=== PATIENT | female | born 1975 | race Caucasian/White ===

== ENCOUNTER 2021-05-15 07:59 | Emergency (ER) | payer SELFPAY ==
--- NOTE | ~2021-05-15 | CT_ITS ---
EXAMINATION: CT brain wo con INDICATION: Confusion, visual disturbance, hypertension COMPARISON: None TECHNIQUE: Standard unenhanced head CT. The dose-length product (DLP) was 605.33 mGy-cm. The mA was a djusted according to patient size. Iterative reconstruction technique was employed. FINDINGS: There is no intracranial hemorrhage, acute infarction, or abnormal mass lesion. There is a small periventricular area of low attenuation in the left childers radiata which may reflect small prio r infarct. The ventricles are normal. There is no abnormal mass effect or midline shift. The stiles-whi te matter differentiation is normal. The basal cisterns are patent. The orbits are normal. The parana humble sinuses, mastoids and calvarium are normal. IMPRESSION: 1. No acute intracranial abnormality. Reviewed, dictated and finalized at location B.
[2021-05-15 08:13] VITALS: BP 190/113; PULSE 97; RESP 18; TEMP 36.6; O2SAT 99
--- NOTE | 2021-05-15 08:28 | ECG_ITS ---
Measurements Intervals [place] Rate: 79 P: 41 [place]: 119 QRS: 39 QRSD: 84 T: 43 QT: 380 QTc: 437 Interpretive Statements SINUS RHYTHM WITH SHORT [place] INTERVAL EARLY PRECORDIAL R/S TRANSITION BORDERLINE ECG Electronically Signed On 05-15-2021 9:08:16 CDT by Shon Steven D.O.
--- NOTE | 2021-05-15 08:38 | ED.EYEPROB ---
HPI - Eye Problem General Chief complaint: Eye Problems Stated complaint: see spots Time Seen by Provider: 05/15/21 08:15 Source: patient and RN notes reviewed Mode of arrival: ambulatory Limitations: no limitations History of Present Illness HPI Narrative: 2 days of blurred vision, slow mentation and elevated BP. no acute VARGAS or lateralizing sxs. chief complaint: other (blurred vision) Onset (ago): day(s) (2) Onset description: gradual Duration: constant Location: both eyes Eye Symptoms: blurry vision Place: home Severity: mild If Pain, Quality: other (pain-free) Associated symptoms: nausea/vomiting Related Data Allergies Allergy/AdvReac Type Severity Reaction Status Date / Time No Known Allergies Allergy Unknown Unverified 10/15/09 11:20 Review of Systems Review of Systems: All systems reviewed & are unremarkable except as noted in HPI and below Constitutional: Constitutional: Reports as per HPI and Reports no additional constitutional complaints Eyes: Eyes: Reports as per HPI and Reports no additional eye complaints ENT: Reports system reviewed and no additional complaints, except as documented and Reports as per HPI Cardiovascular: Cardiovascular: Reports as per HPI and Reports no additional cardiovascular complaints Respiratory: Respiratory: Reports as per HPI and Reports no additional respiratory complaints Gastrointestinal: Gastrointestinal: Reports as per HPI and Reports no additional gastrointestinal complaints Genitourinary: Genitourinary: Reports no additional female genitourinary complaints and Reports as per HPI Musculoskeletal: Musculoskeletal: Reports no additional musculoskeletal complaints and Reports as per HPI Integumentary/Breasts: Skin/Breast: Reports system reviewed and no additional complaints, except as docu and Reports as per HPI Neurologic: Reports system reviewed and no additional complaints, except as documented and Reports as per HPI Psychiatric: Psychiatric: Reports no additional psychiatric complaints and Reports as per HPI Endocrine: Endocrine: Reports no additional endocrine complaints and Reports as per HPI Hematologic/Lymphatic: Hematologic/Lymphatic: Reports no additional hematologic/lymphatic complaints and Reports as per HPI Allergic/Immunologic: Allergic/Immunologic: Reports no additional allergic/immunologic complaints and Reports as per HPI PMFSH Past Medical History Medical History (Updated 05/15/21 @ 10:39 by Rell Beckett MD) Hypertension Surgical History Surgical History (Updated 05/15/21 @ 08:50 by Rell Beckett MD) Gastric bypass status for obesity Exam Const: General: no acute distress and alert Nutritional Appearance: well nourished Orientation/consciousness: patient oriented x3 HENMT: Head: normal to inspection Ears: external ears normal and TM's normal bilaterally General nose exam: Normal external nose present and Normal nares present Face and sinus: normal facial exam Mouth: Yes lip normal and Yes moist mucous membranes Teeth and gingiva: dentition normal Eyes: Conjunctivae: conjunctivae normal Pupils: Equal, round and reactive pupils present EOM: EOMs intact bilaterally Neck: Neck: normal visual inspection and no lymphadenopathy Chest: Chest palpation & inspection: normal inspection of the chest Resp: Effort & Inspection: normal respiratory effort Auscultation: clear to auscultation bilaterally Cardio: Rate: regular rate Rhythm: regular rhythm GI: Auscultation: normal bowel sounds Other: non-tender abdomen : General: Yes no CVA tenderness Back/Spine/Pelvis: Back: no CVA tenderness Skin: General skin exam: normal color Rashes: no rashes Neuro: General: patient oriented x3, moves all extremities, no focal motor deficits and CN's II-XI intact bilaterally Cranial nerves: Yes Nystagmus not present Speech: normal speech Extrem: General: normal to inspection Psych: Appearance: well kempt Mental Status: me
[2021-05-15] MEDS: SODIUM CHLORIDE 0.9% IV 500 ML 999 ML IV CONT (08:47)
[2021-05-15] MEDS: cloNIDine HCL 0.2 MG TABLET PO (08:48)
[2021-05-15] MEDS: ASPIRIN 325 MG ENTERIC TABLET PO (09:06)
[2021-05-15 09:09] LABS: Basophils Absolute Auto 0.05 K/mm3 (0.00-0.10); Basophils Percent Auto 0.6 % (0.0-1.0); Eosinophils Absolute Auto 0.28 K/mm3 (0.02-0.50); Eosinophils Percent Auto 3.5 % (1.0-6.0); Hematocrit 38.9 % (35.0-49.0); Hemoglobin 12.5 g/dL (12.0-15.0); Immature Granulocyte Absolute 0.02 K/mm3 (0.00-0.00); Immature Granulocyte Percent A 0.2 % (0.0-0.0); Lymphocytes Absolute Auto 2.04 K/mm3 (1.10-4.50); Lymphocytes Percent Auto 25.3 % (18.0-42.0); Mean Corpuscular HGB Conc 32.1 g/dL (32.0-36.0); Mean Corpuscular Hemoglobin 26.5 pg (27.0-31.0); Mean Corpuscular Volume 82.6 fL (78.0-102.0); Monocytes Absolute Auto 0.66 K/mm3 (0.10-0.90); Monocytes Percent Auto 8.2 % (2.0-11.0); Neutrophils Percent Auto 62.2 % (50.0-70.0); Platelet Count Result 438 K/mm3 (150-420); Red Blood Count 4.71 M/mm3 (4.20-5.40); Red Cell Distribution Width 16.4 % (11.6-14.4); White Blood Count 8.1 K/mm3 (4.8-10.8)
[2021-05-15 09:10] LABS: Add Urine Microscopic? YES; Appearance Urine Clear (Clear); Bilirubin Urine Negative (Negative); Blood Urine 1+ (Negative); Color Urine Light Yellow (Yellow); Glucose Urine UA Negative (Negative); Ketones Urine Negative (Negative); Leukocyte Esterase Ur 1+ (Negative); Nitrate Urine Negative (Negative); Protein Urine Negative (Negative); Specific Grav Ur 1.015 (1.010-1.020)
[2021-05-15 09:16] LABS: Bacteria Urine 1+ /hpf; Squamous Epithelial Cell Urine Few /hpf (Few)
[2021-05-15 09:19] LABS: Amphetamine Screen Urine Negative (Negative); Barbiturate Screen Urine Negative (Negative); Benzodiazepines Screen Urine Negative (Negative); Cannabinoid Screen Urine Negative (Negative); Cocaine Screen Urine Negative (Negative); Methadone Screen Urine Negative (Negative); Opiate Screen Urine Negative (Negative); Phencyclidine Screen Urine Negative (Negative)
[2021-05-15 09:26] LABS: Alanine Aminotransferase 26 U/L (14-59); Albumin Level 3.9 g/dL (3.4-5.0); Alkaline Phosphatase 110 U/L (46-116); Anion Gap 14 mmol/L (8-16); Aspartate Amino Transferase 39 U/L (15-37); Bilirubin,Total 1.9 mg/dL (0.00-1.00); Blood Urea Nitrogen 10 mg/dL (7-18); Calcium 8.6 mg/dL (8.5-10.1); Carbon Dioxide 26 mmol/L (21-32); Chloride 102 mmol/L (98-108); Estimated CRCL calculation 72 ml/min; Estimated Glomerular Filt Rate > 60; Glucose 123 mg/dL (70-99); Osmolality Calculated 294 mOsm/kg (285-295); Potassium 3.5 mmol/L (3.5-5.1); Sodium 142 mmol/L (136-145); Total Protein 7.8 g/dL (6.4-8.2); Troponin I 4.1 ng/L (0.00-60.4)
[2021-05-15 09:27] LABS: Ethanol < 3 mg/dL (0-6)
[2021-05-15 10:04] VITALS: BP 151/84; PULSE 74; RESP 14; TEMP 36.4
[2021-05-15 10:53] VITALS: BP 140/89; PULSE 68; RESP 18; O2SAT 100
== END 2021-05-15 11:27 | disposition home or self-care (01) ==
PROVIDERS: Emergency Provider Emergency Medicine; PCP Family Medicine
DX: I10 Essential (primary) hypertension (principal); N39.0 Urinary tract infection, site not specified
CPT/HCPCS: 36415; 70450; 80053; 80307; 81001; 84484; 85025; 93005; 96365; 99283; 99284; A9270; J0696; J7040

== ENCOUNTER 2023-04-15 12:17 | Outpatient (CLI) | payer OTHER, SELFPAY ==
--- NOTE | ~2023-04-15 | US_ITS ---
US soft tissue head and neck 04/15/2023 13:11 Indication: Palpable lump of the posterior skull Procedure: High-resolution Limited ultrasound of the skull soft tissues in the area of palpable erwin rn Comparison: No prior studies for comparison. Findings: Normal heterogeneous echotexture without focal solid or cystic mass. Impression: 1: Normal limited soft tissue ultrasound of the posterior aspect of the scrotal soft tissues in the a lola palpable concern. No discrete mass. Reviewed, dictated and finalized at location [] Impression: 1: Normal limited soft tissue ultrasound of the posterior aspect of the scrotal soft tissues in the area palpable concern. No discrete mass.
== END 2023-04-15 12:18 | disposition home or self-care (01) ==
LOC: CHSIMG 12:20
PROVIDERS: PCP Family Medicine; Visit Provider Family Medicine
DX: L98.9 Disorder of the skin and subcutaneous tissue, unspecified (principal)
CPT/HCPCS: 76536

== ENCOUNTER 2025-01-01 15:21 | Outpatient (CLI) | payer OTHER, SELFPAY ==
--- NOTE | ~2025-01-01 | US_ITS ---
EXAMINATION: US venous doppler LE RT DATE: 01/01/2025 15:51 INDICATION: Right calf swelling. TECHNIQUE: Grayscale ultrasound images without and with compression and Doppler ultrasound images of the right lower extremity veins were obtained. COMPARISON: None. FINDINGS: The visualized portions of right common femoral vein, profunda (deep) femoral vein, femoral vein, per ortega veins, and greater saphenous vein outflow are patent. There is thrombus in right popliteal, pos terior tibial, and gastrocnemius veins. IMPRESSION: 1. Deep vein thrombosis involving right popliteal, posterior tibial, and gastrocnemius veins. This r esult was called to Juan Mayers. Reviewed, dictated and finalized at location B. IMPRESSION: 1. Deep vein thrombosis involving right popliteal, posterior tibial, and gastr ocnemius veins. This result was called to Juan Mayers.
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
--- OUTSIDE RECORDS SUMMARY | 2025-01-01 18:00 | XMS_ITS | Data Portability ---
Author Organization [facility], [address] [facility] ([place]) Address [address] [place] [id number] Care Team Providers Care Technical Illustrations Map Inker Name Role Phone DEBBIE ANN Primary Care Provider [phone] Assessment No assessment recorded. Plan of Treatment Reminders Order Date Submit Date Provider Last Modified By Organization Details Last Modified Time Details Appointments None record ed. Lab None record ed. Referral None record ed. Procedures None record ed. Surgeries None record ed. Imaging None record ed. Medication Orders None record ed. Patient TargetsNo targets recorded. Patient InstructionsNo instructions recorded. Reason for Referral None Reported. Problems Name Problem SNOMED Code Status Onset Date Resolution Date Notes Provider Name and Address Organization Details Recorded Time Anxiety 35553614 Active 025 Mayra Husain APRN, DNP. FAT PRESSROOM WORKER [address] [place] [address], [phone] [facility] 5 15:51:34 Chronic depression 976094402 Active 025 Mayra Husain APRN, DNP. FAT PRESSROOM WORKER [address] [place] [address], [phone] [facility] 5 15:51:45 Finding with explicit context 288023303 Active 025 [facility] 1 Mayra Husain APRN, DNP. FAT PRESSROOM WORKER [address] [place] [address], [phone] [place] [address] 5 15:52:23 Hoarse 99835542 Active 025 Mayra Husain APRN, DNP. FAT PRESSROOM WORKER [address] [place] [address], [phone], [facility] 16:14:51 Problem Notes None recorded. Procedures Surgical History Date Name Laterality Status Provider Name and Address Organization Details Recorded Time 11/01/19 04 laparoscopic bypass of stomach completed Mayra Husain, LINE PILOT, DNP. FAT PRESSROOM WORKER [address] [place] [address], [phone], [facility] 11/01/2024 15:51:03 Imaging Results None recorded. Procedure Notes None recorded. Medical Equipment None Reported. Allergies No known drug allergies Medications Name Sig Start Date Stop Date Status Note LastModified by Organization Details LastModified Time cyclobenzap rine 10 mg tablet TAKE 1 TABLET BY MOUTH TWICE A DAY NEEDED active Not Available Not Available No t Available prednisone 10 mg tablet TAKE 1 TAB BY MOUTH EVERY MORNING WITH FOOD active Not Available Not Available No t Available ketoconazol e 2 % shampoo APPLY TO SCALP TWICE A WEEK active Not Available Not Available No t Available alprazolam 1 mg tablet PLEASE SEE ATTACHED FOR DETAILED DIRECTION S active Not Available Not Available No t Available fluconazole 200 mg tablet TAKE 1 TABLET BY MOUTH EVERY 3 DAYS active Not Available Not Available No t Available ondansetron HCl 4 mg tablet TAKE 1 TABLET BY MOUTH THREE TIMES A DAY NEEDED active Not Available Not Available No t Available prednisone 5 mg tablet TAKE 1 TABLET BY MOUTH EVERY DAY active Not Available Not Available No t Available doxycycline monohydrate 100 mg tablet TAKE 1 TABLET BY MOUTH TWICE A DAY active Not Available Not Available No t Available vancomycin 125 mg capsule TAKE 1 CAPSULE BY MOUTH FOUR TIMES A DAY FOR 10 DAYS active Not Available Not Available No t Available doxycycline monohydrate 100 mg capsule TAKE 1 CAPSULE BY MOUTH EVERY DAY active Not Available Not Available No t Available hydrocodone 7.5 mg-acetamin ophen 325 mg tablet TAKE 1 TABLET BY MOUTH FOUR TIMES A DAY NEEDED active Not Available Not Available No t Available cephalexin 500 mg capsule TAKE 1 CAPSULE BY MOUTH THREE TIMES A DAY active Not Available Not Available No t Available nystatin 100,000 unit/gram topical cream 1 APPLICATI ON TO (AFFECTED ) SKIN 2 TIMES PER DAY active Not Available Not Available No t Available losartan 25 mg tablet TAKE 1 TABLET BY MOUTH EVERY DAY active Not Available Not Available No t Available gabapentin 300 mg capsule TAKE 1 CAPSULE BY MOUTH THREE TIMES A DAY NEEDED active Not Available Not Available No t Available levofloxaci n 500 mg tablet TAKE 1 TABLET BY MOUTH EVERY DAY FOR 7 DAYS active Not Available Not Available No t Available levofloxaci n 750 mg tablet TAKE 1 TABLET BY MOUTH EVERY DAY FOR 7 DAYS active Not Available Not Available No t Available methylpredn isolone 4 mg tablets in a dose pack TAKE 6 TABLETS ON DAY 1 DIRECTED ON PACKAGE AND DECREASE BY 1 TAB EACH DAY FOR A TOTAL OF 6 DAYS 11/01 completed Not Available Not Available Not Available amoxicillin 875 mg-potassiu m clavulanate 125 mg tablet TAKE 1 TABLET BY MOUTH TWICE A DAY active Not Available Not Available No t Available bupropion HCl XL 300 mg 24 hr tablet, extended release TAKE 1 TABLET BY MOUTH EVERY DAY active Not Available Not Available No t Available bupropion HCl XL 150 mg 24 hr tablet, extended release TAKE 1 TABLET BY MOUTH EVERY DAY active Not Available Not Available No t Available nitrofurant oin monohydrate /macrocryst als 100 mg capsule TAKE 1 CAPSULE BY MOUTH TWICE A DAY active Not Available Not Available No t Available Nyamyc 100,000 unit/gram topical powder 1 APPLICATI ON TO (AFFECTED ) SKIN 2 TIMES PER DAY active Not Available Not Available No t Available Vitals Date Recorded Body height Body mass index (BMI) Body weight Provider Name and Address Organization Details Last Updated DateTime 11/01/2024 162.56 cm 32.8 kg/m2 06238.14 [facility] 11/01/2024 15:50:16 Social History None recorded. Functional Status None recorded. Mental Status None recorded. Family History Nothing Reported. Medical History No medical history recorded. Gynecological HistoryNo gynecological history recorded. Obstetrics History GPAL:G 0 P 0 0 0 0 Past Encounters Encounter ID Performer Location Encounter Start Date Encounter Closed Date Diagnosis/Indication Diagnosis SNOMED-CT Code Diagnosis ICD10 Code Diagnosis Note [id number] Mayra Husain, LINE PILOT, DNP. FAT PRESSROOM WORKER [facility] 4[facility] E[facility] ([place]) [address] [place] [address] 11/01/2024 15:36:49 11/01/2024 16:14:40 Hoarse 17175956 R49.0 Patient has a history of hoarseness . On laryngosco py can see very thick mucus at the base of her vocal cords. Dr. Martel was present and visualize the mucus because there was some debate whether that was a polyp or mucous. She is really dry from her mucous membranes all the way down to her vocal cords. We discussed doubling her water intake. We discussed the use of nasal saline and Vaseline in her nose to increase moisture. She will follow-up with me in [facility] 6 to 8 weeks. Health Concerns Section Related Observation LastModified by Organization Detai ls LastModified Time None Recorded Concern Status LastModified by Organization Details LastModified Time None Recorded Advance Directives Directive None Recorded Payers Encounter Date Sequence Insurance Name Policy Number Policy Stinson Covered Member ID Stinson Member ID Guarantor Name 11/01/2024 1 [facility] [id number] Ora Uriarte [id number] Ora Uriarte Notes Date Note Type Note Provider Name and Address Organization Details Recorded Time 11/01/2024 text/html 48 year old sunny le seen in ENT for hoarseness. She has a globus sensation. She has a spot on the back of her head that she thinks flares up when she is more hoarse. She is on low dose doxycycline to help control. She get occasional heartburn. She takes famotidine and tums daily. She had gastric bypass 20 years ago. Mayra Husain, SETH, DNP. FAT PRESSROOM WORKER [address] [place] [address], [phone], [place] [facility] 11/02/2024 12:33:34 OBGyn Episode No OBEpisode recorded.
--- OUTSIDE RECORDS SUMMARY | 2025-01-01 18:00 | XMS_ITS | Continuity of Care Document ---
Author Organization [facility] Address [address] [place] [address] Phone Care Team Providers Care Associate Java Developer Name Role Phone No Information Unavailable Unavailable Medications Medication Instructions Dosage Effective Dates (start - stop) Status Comments Effexor 100 mg Tab - Active ProAir HFA 90 mcg/Actuation Aerosol Inhaler 1 puff q4-6hrs - Active Symbicort 80 mcg-4.5 mcg/Actuation Inhalation HFA Aerosol Inhaler Inhale two times by mouth two times per day - Active Protonix 40 mg Tab Take one tablet by mouth daily. - Active Albuterol Sulfate HFA 90 mcg/Actuation Aerosol Inhaler Take 2 puffs by mouth every 4-6 hours PRN - Active Proventil HFA 90 mcg/Actuation Aerosol Inhaler Inhale two times by mouth four times per day as needed - Active TABLET Take one tablet by mouth daily. - Active Procedures Procedure Date General Health Panel Lipid Panel Ua Dip Stick/tablet; Auto W/mi 08 Venipuncture Cyanocobalamin Folic Acid; Serum Preven E&m Estab Pt; 18-39 Yr 8 Bicillin LA 1,200,000units Offic/outpt E&m Estab Mod-hi 2 07 Agt-immunassay Dir Obs; Strep 7 Offic/outpt E&m Estab Mod-hi 2 07 Vit B-12 Cyanocobalamin-1000 M 07 Admin Inj,diag,ther,or Prophyl 07 Vit B-12 Cyanocobalamin-1000 M 07 Admin Inj,diag,ther,or Prophyl [address]; Hg/pltlt Ct Auto/compl 07 Venipuncture Ferritin Iron Iron Binding Capacity Offic/outpt E&m Estab Low-mod 7 Handl/convey Specmn-offic To L 07 Rheumatoid Factor; Pedro Venipuncture Folic Acid; Serum Offic/outpt E&m New Mod Sever [address]; Hg/pltlt Ct Auto/compl 07 Comp Metabolic Panel Hgb; Glycated Thyroid Stim Hormone Ua Dip Stik/tablt;wo Micro Non 07 Sed Rate, Erythrocyte; Auto Antinuclear Antib; Titer Dna Antib; [place]/double Stran 07 Extract Nuclr Antig Antib Any 7 Cyanocobalamin Immuniz Admin; 1/combo Vacc/to 07 TDAP VACCINE >7 IM ASSAY OF PROTEIN, URINE Advance Directives Directive Yes / No Effective Date File Name No Information Encounters Encounter Description Practice Location Reason(s) For Visit Diagnoses Date Provider Providers Copied on Encounter Medical [facility], [address], [place], [place], [id number] , [place] tel: [phone] No Information 8 0 No Information [facility], [address], [place], [place], [id number] , [place] tel: [phone] Karen No Information 8 Conoley Sheyla. [address], [place], [place], [id number], [place]. tel:[phone] [facility], [address], [place], [place], [address] , [place] tel: [phone] Karen No Information 9200 8 Anitha Cisneros. [address], [place], [place], [address], [place]. tel:[phone] Referring Provider: Rebecca Araiza [address] [facility] [address], [place], [address] . tel:[phone] Preven E&m Estab Pt; 18-39 Yr [facility], [address], [place], [place], [address] , [place] tel: [phone] Karen EXAM, GENERAL, ROUTINE 5200 8 Anitha Cisneros. [address], [place], [place], [address], [place]. tel:[phone] Referring Provider: Stacy Beltran [facility] [address], [place], [address] . tel:[phone] [facility], [address], [place], [place], [address] , [place] tel: [phone] Karen No Information 8200 8 Van Fernandez. [address], [facility] [address], [place], [place], [address], [place]. tel:[phone] Offic/outpt E&m Estab Mod-hi 2 [facility], [address], [place], [place], [address] , [place] tel: [phone] Karen ASTHMA, UNSPECIFIED Sep-1 0-200 7 Van Fernandez. [address], [facility] [address], [place], [place], [address], [place]. [phone] Referring Provider: Rebecca Araiza [address] [facility] [address], [place], [address] . tel:[phone] Offic/outpt E&m Estab Mod-hi [address] [place] [address], [address], [place], [place], [address] , [place] tel: [phone] Karen SINUSITIS, ACUTE, UNSPEC.ASTHMA, UNSPECIFIED Mar-0 9-200 7 [place] Rebecca. [address] [facility] [address], [place], [place], [id number], [place]. [phone] Referring Provider: Rebecca Araiza [address] [facility] [address], [place], [address] . tel:[phone] [facility], [address], [place], [place], [address] , [place] tel: [phone] [place] No Information Dec-0 2-200 7 [place] Rebecca. [address] [facility] [address], [place], [place], [address], [place]. [phone] Referring Provider: Rebecca Araiza [address] [facility] [address], [place], [address] . tel:[phone] [facility], [address], [place], [place], [address] , [place] tel: [phone] [place] No Information Oct-2 6-200 7 [place] Rebecca. [address] [facility] [address], [place], [place], [address], [place]. tel:[phone] Referring Provider: Rebecca Araiza [address] [facility] [address], [place], [address] . tel:[phone] Offic/outpt E&m Estab [facility], [address], [place], [place], [address] , [place] tel: [phone] Karen OTH SPEC NONINFLAMMATORY DISORDEFATIGUE/M ALAISE 8 7 [place] Abrahamynh. [address], [facility] [address], [place], [place], [address], [place]. tel:[phone] Referring Provider: Rebecca Araiza [address] [facility] [address], [place], [address] . tel:[phone] Offic/outpt E&m [facility], [address], [place], [place], [address] , [place] tel: [phone] Karen PAIN, HIPASTHMA, UNSPECIFIEDFATIG UE/MALAISEPROTEI NURIABP ELEVATION 7 Van Fernandez. [address], [facility] [address], [place], [place], [address], [place]. tel:[phone] Referring Provider: Rebecca Araiza [address] [facility] [address], [place], [address] . tel:[phone] Family History Family Member Type Diagnosis Age At Onset No Information Immunizations Vaccine Date Status Comments Tdap administered Note: Administe red by Oliva Ahn ; Source: New Immunization Record Payers Payer name Insurance type Covered green party ID Authoriza tion(s) BCBS PPO/POS BL [id number] Social History Type Description Quantity Date Captured Comments Alcohol Use Details Unknown Caffeine Use Details Unknown 4 cups per day Tobacco Use Status No Information Smoking Status No Information Sex Female Chief Complaint And Reason For Visit No Information Reason For Referral Reason For Referral No Information History Of Present Illness Encounter Date Complaint History Of Prese nt Illness No Information Functional Status Date Functional Assessmen t No Information Instructions Date Instruction Additional Infor mation No Information Assessments Type Assessment Date No Information Patient Care Teams Name Effective Dates (start - stop) Status Members No Information
--- OUTSIDE RECORDS SUMMARY | 2025-01-01 18:00 | XMS_ITS | Encounter Summary ---
Author Organization [facility] Address [address] [place] [address] Care Team Providers Care Plant Chief Name Role Phone Ladan Johnson MD Primary Care Provider [phone] Encounter Details Date Type Department Care Team (Late st Contact Info) Description 06/02/2023 Telnic Message Enc [facility] [address] [place] [address] Prince Hudson MD [address] [place] [address] Visit Follow Up Social History Tobacco Use Types Packs/Day Years Used Date Smoking Tobacco: Every Day Cigarettes Smokeless Tobacco: Never Alcohol Use Standard Drinks/Week Comments Yes 0 (1 standard drink = 0.6 oz pur e alcohol) rare Comments Unknown Sex and Gender Information Value Date Recorded Sex Assigned at Female 11/26/2024 3:01 PM PATIENT CASE MANAGER Legal Sex Female 4:40 PM CDT Gender Identity Not on file Sexual Orientation Not on file documented as of this encounter Plan of Treatment Not on file documented as of this encounter Visit Diagnoses Not on filedocumented in this encounter Care Teams Plant Chief Relationship Specialty Start Date End Date Ladan Johnson MD [address] [place] [phone] PCP - General FAMILY PRACTICE 05/20/23 documented as of this encounter
--- OUTSIDE RECORDS SUMMARY | 2025-01-01 18:00 | XMS_ITS | Encounter Summary ---
Author Organization [facility] Address [address] [place] [address] Care Team Providers Care Athlete Manager Name Role Phone Ladan Johnson MD Primary Care Provider [phone] Encounter Details Date Type Department Care Team (Latest Contact Info) Description 08/30/2018 Abstract [facility] , Juanito Ingram MD Social History Tobacco Use Types Packs/Day Years Used Date Smoking Tobacco: Never Assessed Comments Unknown Sex and Gender Information Value Date Recorded Sex Assigned at Female 11/26/2024 3:01 PM IT TRAINEE Legal Sex Female 4:40 PM CDT Gender Identity Not on file Sexual Orientation Not on file documented as of this encounter Plan of Treatment Not on file documented as of this encounter Visit Diagnoses Not on filedocumented in this encounter Care Teams Athlete Manager Relationship Specialty Start Date End Date Ladan Johnson MD [address] [place] [phone] PCP - General FAMILY PRACTICE 05/20/23 documented as of this encounter
--- OUTSIDE RECORDS SUMMARY | 2025-01-01 18:00 | XMS_ITS | Clinical Summary ---
Author Organization [facility] Address [facility] [place] [address] Care Team Providers Care Mandolin Repair Person Name Role Phone Ladan Johnson MD Primary Care Provider [phone] Allergies No known active allergies Medications gabapentin (NEURONTIN) 100 MG capsule Take 3 capsules (300 mg total) by mouth 3 (three) times daily as needed. 3 Active ondansetron (ZOFRAN) 4 MG tablet Take 1 tablet (4 mg total) by mouth every 8 (eight) hours as needed. 3 Active azithromycin (ZITHROMAX) 250 MG tablet TAKE 2 TABLETS BY MOUTH TODAY, THEN TAKE 1 TABLET DAILY FOR 4 DAYS DIRECTED 5 Active vitamin D3 (CHOLECALCIFEROL ) 1.25 mg capsule Take 1 capsule (1.25 mg total) by mouth. 5 Active doxycycline monohydrate 100 MG capsule Take 1 capsule (100 mg total) by mouth daily. Active ferrous sulfate, 65 mg elemental, 325 (65 FE) MG tablet Take 1 tablet (325 mg total) by mouth daily with breakfast. 5 Active predniSONE (DELTASONE) 20 MG tablet 2 (TWO) TABLET BY MOUTH EVERY MORNING, TAKE IN THE MORNING WITH FOOD. 5 Active losartan (COZAAR) 50 MG tablet Take 1 tablet (50 mg total) by mouth daily. 30 tablet 5 Active Active Problems Problem Noted Date Diagnosed Date Trigger point with back pain 06/02/2023 Encounters Date Type Department Care Team Description 12/14/2024 4:09 PM POST EXCHANGE MANAGER - 12/14/2024 11:59 PM POST EXCHANGE MANAGER Hospital Encounter [facility] [address] [place] [place] [address] Darius Mcleod PA Discharge Disposition: Home or Self Care (Routine Discharge) 12/14/2024 Travel 11/26/2024 2:39 PM POST EXCHANGE MANAGER - 11/26/2024 4:35 PM POST EXCHANGE MANAGER Emergency [facility] [address] [place] [address] Bobbi Billy MD Medical Problem Discharge Disposition: Home or Self Care (Routine Discharge) 11/26/2024 Travel from Last 3 Months Family History Medical History Relation Comments COPD Father Stroke Father Alzheimer's disease Mother Dementia Mother Mental Health Mother Relation Status Comments Father Mother Social History Tobacco Use Types Packs/Day Years Used Date Smoking Tobacco: Former Cigarettes Smokeless Tobacco: Never Alcohol Use Standard Drinks/Week Comments Yes 0 (1 standard drink = 0.6 oz pur e alcohol) rare Comments No Sex and Gender Information Value Date Recorded Sex Assigned at Female 11/26/2024 3:01 PM POST EXCHANGE MANAGER Legal Sex Female 4:40 PM CDT Gender Identity Not on file Sexual Orientation Not on file Last Filed Vital Signs Vital Sign Reading Time Taken Comments Blood Pressure 174/99 11/26/2024 4:00 PM POST EXCHANGE MANAGER Pulse 75 11/26/2024 3:51 PM POST EXCHANGE MANAGER Temperature 36.5 C (97.7 F) 11/26/2024 2:45 PM POST EXCHANGE MANAGER Respiratory Rate 18 11/26/2024 3:51 PM POST EXCHANGE MANAGER Oxygen Saturation 97% 11/26/2024 4:00 PM POST EXCHANGE MANAGER Inhaled Oxygen Concentration - - Weight 87.6 kg (193 lb 3.2 oz) 11/26/2024 2:45 P M POST EXCHANGE MANAGER Height 162.6 cm (5' 4 ) 11/26/2024 2:45 PM POST EXCHANGE MANAGER Body Mass Index 33.16 11/26/2024 2:45 PM POST EXCHANGE MANAGER Plan of Treatment Health Maintenance Due Date Last Done Comments Cervical Cancer Screening Pa p Smear (Age 30 to 64) Every 3 Years 1975 Colorectal Cancer Screening Colonoscopy (10 Years) 1975 Annual Physical 1978 Pneumococcal Vaccine: Pediatrics (0 to 5 Years) and At-Risk Patients (6 to 64 Years) (1 of 2 - PCV) 1981 Hepatitis C 1993 Hepatitis B Vaccines (1 of 3 - 19+ 3-dose series) 1994 Cervical Cancer Screening Pa p with HPV Testing (Age 30 to 64) Every 5 Years 2005 Cervical Cancer Screening wi th HPV 2005 Mammogram Screening 2015 COVID-19 Vaccine (2023-2 5 season) 2024 01/31/2021, 01/01/2021 Influenza Adult (#1) 2024 09/02/2011 DTaP, Tdap and Td Vaccines ( 2 - Td or Tdap) 07/25/2031 07/25/2021 Meningococcal B Vaccine Aged Out No l onger eligible based on patient's age to complete this topic Meningococcal Vaccine Aged Out No sumi charity eligible based on patient's age to complete this topic RSV Immunizations Under 20 Months Aged Out No longer eligible b ased on patient's age to complete this topic Procedures Procedure Name Priority Date/Time Associated Diagnosis Comments XR CHEST PA+LAT Routine 12/14/2024 4:21 PM POST EXCHANGE MANAGER Asthmatic bronchitis (HHS/HCC) CTA HEAD+NECK STAT 11/26/2024 3:[address] HEAD WO CON STAT 11/26/2024 3:25 PM POST EXCHANGE MANAGER ECG 12-LEAD Routine 11/26/2024 3:14 PM POST EXCHANGE MANAGER MAGNESIUM STAT 11/26/2024 3:10 PM POST EXCHANGE MANAGER TROPONIN, QUANT STAT 11/26/2024 3:10 PM POST EXCHANGE MANAGER COMPREHENSIVE METABOLIC PANEL STAT 11/26/2024 3:10 PM POST EXCHANGE MANAGER CBC W/DIFF AUTOMATED STAT 11/26/2024 3:10 PM POST EXCHANGE MANAGER from Last 3 Months Results * XR CHEST PA+LAT (12/14/2024 4:21 PM POST EXCHANGE MANAGER) Anatomical Region Laterality Modality Chest Radiographic Ines ging 12/14/2024 4:31 PM POST EXCHANGE MANAGER Impressions 12/14/2024 4:32 PM POST EXCHANGE MANAGER IMPRESSION: No acute disease. Ordered By: DARIUS Reddyally Signed By: Wade Gibson MD on 12/14/2024 4:32 PM Interpreted By: Wade Gibson MD, 12/14/2024 4:31 PM Narrative 12/14/2024 4:32 PM POST EXCHANGE MANAGER [address] [place] [address] Examination: Two-view chest Exam time: 1600 hours. Clinical history: Cough and dyspnea. Comparison: None. Technique: PA and lateral views Findings: The heart is within normal limits for size. Pulmonary vascularity is within normal limits. The lungs and pleural spaces appear free of any active process. The bony thorax is unremarkable for age and stature. Procedure Note Wade Gibson MD - 12/14/[address] [place] [address] Examination: Two-view chest Exam time: 1600 hours. Clinical history: Cough and dyspnea. Comparison: None. Technique: PA and lateral views Findings: The heart is within normal limits for size. Pulmonaryvascularity is within normal limits. The lungs and pleural spaces appearfree of any active process. The bony thorax is unremarkable for age andstature. IMPRESSION: No acute disease. Ordered By: DARIUS MCLEOD Interpreted By: Wade Gibson MD, 12/14/2024 4:31 PM [facility] Final Result * CTA HEAD+NECK (11/26/2024 3:25 PM POST EXCHANGE MANAGER) Anatomical Region Laterality Modality Head, Neck Computed Tomogra phy 11/26/2024 3:35 PM POST EXCHANGE MANAGER Impressions 11/26/2024 6:43 PM POST EXCHANGE MANAGER IMPRESSION: 1. No evidence of obstruction of the proximal portions of the [place]. 2. No clinically significant internal carotid artery stenosis. Dictated By: Micky Perez MD on 11/26/2024 3:35 PM The attending radiologist has reviewed the image(s) and agrees with the content of this report. Referred By: BOBBI S ALEPRA Interpreted By: Micky Perez MD, 11/26/2024 3:35 PM Narrative 11/26/2024 6:43 PM POST EXCHANGE MANAGER [place] [id number] [facility] [address] [place] [address] [place] [address] [facility] [place] [address] INDICATION: Left-sided numbness that began earlier today. EXAMINATION: CT angiography of the head and neck were performed after uneventful intravenous administration of [address] dose reduction techniques were utilized. Internal carotid stenosis measured according to NASCET criteria. Axial and multiplanar MIP images were reformatted and reviewed. Additional 3D reconstructions and post-processing were performed independently by the attending radiologist on a separate dedicated 3D workstation. A dose lowering technique was used for this procedure, which may include, but is not limited to, dose reduction technique, automated exposure control, the use of iterative reconstruction, and ALARA (As Low As Reasonably Achievable) / Image Gently techniques. COMPARISON: CT sinus 03/16/2017, 08/27/2016. FINDINGS: CTA NECK: Aorta and great vessel origins: There is normal configuration of the aortic arch. The brachiocephalic and subclavian arteries are patent. No significant stenosis is identified. Right carotid artery: The right common carotid artery is patent, without significant stenosis. The internal carotid artery is torturous. No significant stenosis. Left carotid artery: The left common carotid arteries patent, without significant stenosis. The internal carotid artery is tortuous. No significant stenosis. Vertebral arteries: The vertebral arteries are patent bilaterally. CTA HEAD: The intracranial segments of the internal carotid arteries are patent, without definite stenosis. The middle cerebral arteries and anterior cerebral arteries are patent. An anterior cerebral artery is present. There is a origin of the right posterior cerebral artery which is a normal variant. The right posterior communicating artery is patent. The left posterior cerebral artery is patent. An is a small left posterior communicating artery. The basilar artery and its branches are patent. No intracranial aneurysm is identified. SOFT TISSUES: The soft tissue structures of the neck are unremarkable. The visualized lung apices are clear. Mild spondylosis is seen in the visualized spine. The patient is edentulous. Procedure Note Eldon Osman MD - 11/26/2024 [facility] [address] [place] [address] [facility] [address] [facility] [place] [address] INDICATION: Left-sided numbness that began earlier today. EXAMINATION: CT angiography of the head and neck were performed after uneventfulintravenous administration of [address] dose reductiontechniques were utilized. Internal carotid stenosis measured according toNASCET criteria. Axial and multiplanar MIP images were reformatted andreviewed. Additional 3D reconstructions and post-processing were performedindependently by the attending radiologist on a separate dedicated 3Dworkstation. A dose lowering technique was used for this procedure, which may include,but is not limited to, dose reduction technique, automated exposurecontrol, the use of iterative reconstruction, and ALARA (As Low AsReasonably Achievable) / Image Gently techniques. COMPARISON: CT sinus 03/16/2017, 08/27/2016. FINDINGS: CTA NECK: Aorta and great vessel origins: There is normal configuration of theaortic arch. The brachiocephalic and subclavian arteries are patent. Nosignificant stenosis is identified. Right carotid artery: The right common carotid artery is patent, without significant stenosis.The internal carotid artery is torturous. No significant stenosis. Left carotid artery: The left common carotid arteries patent, without significant stenosis. Theinternal carotid artery is tortuous. No significant stenosis. Vertebral arteries: The vertebral arteries are patent bilaterally. CTA HEAD: The intracranial segments of the internal carotid arteries are patent,without definite stenosis. The middle cerebral arteries and anteriorcerebral arteries are patent. An anterior cerebral artery is present.There is a origin of the right posterior cerebral artery which is anormal variant. The right posterior communicating artery is patent. Theleft posterior cerebral artery is patent. An is a small left posteriorcommunicating artery. The basilar artery and its branches are patent. Nointracranial aneurysm is identified. SOFT TISSUES: The soft tissue structures of the neck are unremarkable. The visualizedlung apices are clear. Mild spondylosis is seen in the visualized spine.The patient is edentulous. IMPRESSION: 1. No evidence of obstruction of the proximal portions of the [place]. 2. No clinically significant internal carotid artery stenosis. Dictated By: Micky Perez MD on 11/26/2024 3:35 PM The attending radiologist has reviewed the image(s) and agrees with thecontent of this report. Referred By: BOBBI BILLY Interpreted By: Micky Perez MD, 11/26/2024 3:35 PM us Bobbi Billy MD CT Final Resul t * CT HEAD WO CON (11/26/2024 3:25 PM POST EXCHANGE MANAGER) Anatomical Region Laterality Modality Head Computed Tomogra phy 11/26/2024 3:29 PM POST EXCHANGE MANAGER Impressions 11/26/2024 3:38 PM POST EXCHANGE MANAGER IMPRESSION: No CT evidence of acute intracranial abnormality. Dictated By: Micky Perez MD on 11/26/2024 3:29 PM The attending radiologist has reviewed the image(s) and agrees with the content of this report. Referred By: BOBBI BILLY Interpreted By: Micky Perez MD, 11/26/2024 3:29 PM Narrative 11/26/2024 3:38 PM POST EXCHANGE MANAGER [address] [place] [address] [place] [address] Examination: CT HEAD WO CON Exam time: 11/26/2024 3:25 PM Clinical history: Left-sided numbness and tingling that started earlier today. Comparison: CT sinuses 09/23/2016, 03/16/2017 Technique: A CT scan of the head was performed without IV contrast. Coronal and sagittal reformatted images were reviewed. A dose lowering technique was used for this procedure, which may include, but is not limited to, dose reduction technique, automated exposure control, iterative reconstruction, ALARA (As Low As Reasonably Achievable), or Image Gently techniques. Findings: No CT evidence of acute infarction. There is normal stiles-white matter differentiation. No intracranial hemorrhage. No extra-axial collection, mass effect, or midline shift. The ventricles and basilar cisterns are within normal limits. White matter structures are unremarkable. Parenchymal volume is within normal limits. The sella and cerebellum are within normal limits. The mastoid air cells and paranasal sinuses are clear. The orbits are unremarkable. No calvarial fracture. No extracranial soft tissue mass. Procedure Note Eldon Osman MD - 11/26/[address] [place] [address] [place] [address] Examination: CT HEAD WO CON Exam time: 11/26/2024 3:25 PM Clinical history: Left-sided numbness and tingling that started earliertoday. Comparison: CT sinuses 09/23/2016, 03/16/2017 Technique: A CT scan of the head was performed without IV contrast.Coronal and sagittal reformatted images were reviewed. A dose loweringtechnique was used for this procedure, which may include, but is notlimited to, dose reduction technique, automated exposure control,iterative reconstruction, ALARA (As Low As Reasonably Achievable), orImage Gently techniques. Findings: No CT evidence of acute infarction. There is normal stiles-white matterdifferentiation. No intracranial hemorrhage. No extra-axial collection,mass effect, or midline shift. The ventricles and basilar cisterns arewithin normal limits. White matter structures are unremarkable.Parenchymal volume is within normal limits. The sella and cerebellum arewithin normal limits. The mastoid air cells and paranasal sinuses areclear. The orbits are unremarkable. No calvarial fracture. No extracranialsoft tissue mass. IMPRESSION: No CT evidence of acute intracranial abnormality. Dictated By: Micky Perez MD on 11/26/2024 3:29 PM The attending radiologist has reviewed the image(s) and agrees with thecontent of this report. Referred By: BOBBI BILLY Interpreted By: Micky Perez MD, 11/26/2024 3:29 PM us Bobbi Billy MD CT Final Resul t * ECG 12 lead (11/26/2024 3:14 PM POST EXCHANGE MANAGER) 11/26/2024 3:14 PM POST EXCHANGE MANAGER Narrative [facility] - 11/26/2024 8:39 PM POST EXCHANGE MANAGER [address] [place] [address] Test Date: 2024-11-26 Pat Name: IDALIA MCDONNELL Department: 3 Room: EXAM 1 Gender: Female Extracorporeal Technician: : 1975 Requested By: BOBBI BILLY Order Number: [id number] Reading MD: Jorje Bernstein Measurements Intervals [place] Rate: 77 P: 39 [place]: 121 QRS: 1 QRSD: 72 T: 27 QT: 354 QTc: 402 Interpretive Statements SINUS RHYTHM WITH OCCASIONAL SUPRAVENTRICULAR PREMATURE COMPLEXES LEFT ATRIAL ENLARGEMENT EXCHANGE MANAGER Procedure Note Jorje Bernstein MD - 11/26/[address] [place] [address] Test Date: 2024-11-26 Pat Name: IDALIA KECIA Department: 3 Room: EXAM 1 Gender: Female Extracorporeal Technician: : 1975 Requested By: BOBBI BILLY Order Number: [id number] Reading MD: Jorje Bernstein Measurements Intervals [place] Rate: 77 P: 39 [place]: 121 QRS: 1 QRSD: 72 T: 27 QT: 354 QTc: 402 Interpretive Statements SINUS RHYTHM WITH OCCASIONAL SUPRAVENTRICULAR PREMATURE COMPLEXES LEFT ATRIAL ENLARGEMENT EXCHANGE MANAGER us Bobbi Billy MD ECG ORDERABLES Final Resul t [facility] * (ABNORMAL) COMPREHENSIVE METABOLIC PANEL (11/26/2024 3:10 PM POST EXCHANGE MANAGER) SODIUM S/P/B 139 136 - 145 MMOL/L 11/26/2024 3:33 PM POST EXCHANGE MANAGER [facility] POTASSIUM S/P/B 4.5 3.5 - 5.1 MMOL/L 11/26/2024 3:33 PM [facility] CHLORIDE S/P/B 102 98 - 107 MMOL/L 11/26/2024 3:33 PM [facility] CO2 27.4 21.0 - 32.0 MMOL/L 11/26/2024 3:33 PM [facility] GLUCOSE 179(H) 70 - 99 MG/DL 11/26/2024 3:33 PM [facility] Comment: FASTING GLUCOSE 100 TO 125 MG/DL IS CONSISTENT WITH IMPAIRED FASTING GLUCOSE. FASTING GLUCOSE >125 MG/DL IS CONSISTENT WITH DIABETES. RANDOM GLUCOSE >200 MG/DL WITH HYPERGLYCEMIC SYMPTOMS IS CONSISTENT WITH DIABETES. PER ADA GUIDELINES BUN 18 6 - 24 MG/DL 11/26/2024 3:33 PM [facility] CREATININE S/P/B 0.86 0.55 - 1.02 MG/DL 11/26/2024 3:33 PM [facility] CALCIUM S/P/B 8.3(L) 8.4 - 10.5 MG/DL 11/26/2024 3:33 PM [facility] BILIRUBIN TOTAL S/P/B 0.7 0.2 - 1.0 MG/DL 11/26/2024 3:33 PM [facility] Comment: THIS ASSAY IS NOT RECOMMENDED FOR PATIENTS UNDERGOING TREATMENT WITH ELTROMBOPAG DUE TO THE POTENTIAL FOR FALSELY ELEVATED RESULTS. ALKALINE PHOSPHATASE S/P/B 56 39 - 100 U/L 11/26/2024 3:33 PM [facility] AST 23 15 - 37 U/L 11/26/2024 3:33 PM [facility] ALT 22 14 - 59 U/L 11/26/2024 3:33 PM [facility] TOTAL PROTEIN S/P/B 6.1(L) 6.4 - 8.2 G/DL 11/26/2024 3:33 PM [facility] ALBUMIN S/P/B 3.1(L) 3.4 - 5.0 G/DL 11/26/2024 3:33 PM [facility] ANION GAP 9.6 5.0 - 15.0 MMOL/L 11/26/2024 3:33 PM POST EXCHANGE MANAGER [facility] OSMOLALITY (CALC) 294 MOSM/KG 025 3:33 PM POST EXCHANGE MANAGER [facility] Comment:REFERENCE RANGE NOT ESTABLISHED GFR ESTIMATE 83(L) >89 ML/MIN/1. 73 M2 11/26/2024 3:33 PM POST EXCHANGE MANAGER [facility] GFR NOTES GFR REFERENCE S: 11/26/2024 3:33 PM POST EXCHANGE MANAGER [facility] Comment: THE ESTIMATED GFR IS CALCULATED USING THE 2020 CKD-EPI EQUATION. THE FOLLOWING CATEGORIES FOR GRADING RENAL FUNCTION ARE RECOMMENDED BY THE INTERNATIONAL SOCIETY OF NEPHROLOGY (KDIGO 2012 CLINICAL PRACTICE GUIDELINE). G1,NORMAL OR HIGH: >89 ml/min/1.73 m2 G2,MILDLY DECREASED: 60-89 ml/min/1.73 m2 G3A,MILDLY TO MODERATELY DECREASED: 45-59 ml/min/1.73 m2 G3B,MODERATELY TO SEVERELY DECREASED: 30-44 ml/min/1.73 m2 G4,SEVERELY DECREASED: 15-29 ml/min/1.73 m2 G5,KIDNEY FAILURE: <15 ml/min/1.73 m2 11/26/2024 3:10 PM POST EXCHANGE MANAGER us Bobbi Billy MD LABORATORY Final Resul t [facility] [address] [place] [address], * (ABNORMAL) CBC W/DIFF AUTOMATED (11/26/2024 3:10 PM POST EXCHANGE MANAGER) WBC 12.64(H) 4.00 - 10.80 x10'3/uL 11/26/2024 3:21 PM POST EXCHANGE MANAGER [facility] RBC 3.93(L) 4.10 - 5.40 x10'6/uL 11/26/2024 3:21 PM POST EXCHANGE MANAGER [facility] HGB 8.2(L) 12.0 - 16.0 G/DL 11/26/2024 3:21 PM POST EXCHANGE MANAGER [facility] HCT 27.6(L) 36.0 - 47.0 % 11/26/2024 3:21 PM [facility] MCV 70.2(L) 78.0 - 100.0 FL 11/26/2024 3:21 PM [facility] MCH 20.9(L) 27.0 - 31.0 PG 11/26/2024 3:21 PM [facility] MCHC 29.7(L) 33.0 - 36.0 G/DL 11/26/2024 3:21 PM [facility] RDW 21.6(H) 11.5 - 14.5 % 11/26/2024 3:21 PM [facility] PLT 380(H) 150 - 350 x10'3/uL 11/26/2024 3:21 PM [facility] MPV 9.6 7.4 - 10.4 FL 11/26/2024 3:21 PM [facility] CBC COMMENT NORMAL REFERENCE RANGE NOT ESTABLISHED FOR THE PROPORTIONAL LEUKOCYTE DIFFERENTIAL. 11/26/2024 3:21 PM [facility] SEG NEUTROPHILS 94 % 3:54 PM [facility] LYMPHOCYTES 5 % 11/26/2024 3:54 PM [facility] MONOCYTES 1 % 11/26/2024 3:54 PM [facility] ABS SEGMENTED NEUTS 11.88(H) 1.60 - 8.30 x10'3/uL 11/26/2024 3:54 PM [facility] ABS. LYMPHOCYTES 0.63(L) 0.80 - 4.70 x10'3/uL 11/26/2024 3:54 PM [facility] ABS. MONOCYTES 0.13 0.10 - 1.50 x10'3/uL 11/26/2024 3:54 PM [facility] PLT MORPH. NORMAL 11/26/2024 3:54 PM [facility] RBC MORPHOLOGY 2+ 11/26/2024 3:54 PM [facility] Comment: ANISOCYTOSIS 1+ MICROCYTES 2+ HYPOCHROMASIA 1+ TARGET CELLS 1+ POIKILOCYTOSIS 11/26/2024 3:10 PM POST EXCHANGE MANAGER Bobbi Billy MD LABORATORY Final Resul t Performing Organization Address [facility] Co de Phone Number [facility] [address] [place] [address], * TROPONIN, QUANT (11/26/2024 3:10 PM POST EXCHANGE MANAGER) TROPONIN I HIGH SENSITIVITY 9 0 - 51 ng/L 11/26/2024 3:33 PM POST EXCHANGE MANAGER [facility] 11/26/2024 3:10 PM POST EXCHANGE MANAGER Bobbi Billy MD LABORATORY Final Resul t Performing Organization Address [facility] Co de Phone Number [facility] [address] [place] [address], * MAGNESIUM (11/26/2024 3:10 PM POST EXCHANGE MANAGER) MAGNESIUM 2.2 1.8 - 2.4 MG/DL 11/26/2024 3:33 PM POST EXCHANGE MANAGER [facility] 11/26/2024 3:10 PM POST EXCHANGE MANAGER Bobbi Billy MD LABORATORY Final Resul t Performing Organization Address [facility] Co de Phone Number [facility] [address] [place] [address], from Last 3 Months Insurance Care Teams Mandolin Repair Person Relationship Specialty Start Date End Date Ladan Johnson MD [address] [place] [phone] PCP - General FAMILY PRACTICE 05/20/23
== END 2025-01-01 15:22 | disposition home or self-care (01) ==
PROVIDERS: PCP Family Medicine; Visit Provider Family Medicine
DX: I82.431 Acute embolism and thrombosis of right popliteal vein (principal); I82.441 Acute embolism and thrombosis of right tibial vein; I82.461 Acute embolism and thrombosis of right calf muscular vein
CPT/HCPCS: 93971

== ENCOUNTER 2025-02-13 13:50 | Outpatient (CLI) | payer OTHER, SELFPAY ==
--- NOTE | ~2025-02-13 | US_ITS ---
EXAMINATION: US venous doppler LE RT DATE: 02/13/2025 14:20 INDICATION: Follow-up right lower extremity deep venous thrombosis TECHNIQUE: Grayscale ultrasound images without and with compression and Doppler ultrasound images of the right lower extremity veins were obtained. COMPARISON: 01/01/2025 which demonstrated thrombosis of the right popliteal, posterior tibial and miranda rocnemius veins. FINDINGS: The visualized portions of right common femoral vein, profunda (deep) femoral vein, femoral vein, per ortega veins, posterior tibial veins, and greater saphenous vein outflow are patent. Partial compressibility and patency of flow is identified within the right popliteal vein. Color flow of the gastrocnemius vein was not interrogated on the submitted images. The gastrocnemius vein remained noncompressible for which color flow imaging is needed to evaluate fo r the presence or absence of flow. Incidental notation is made of reflux of 1.2 seconds within the right popliteal vein. IMPRESSION: Partial compressibility with patency of flow within the right popliteal vein. Interval resolution of thrombus within the right posterior tibial vein. The right gastrocnemius vein is presumed to contain thrombus as it is noncompressible. Reviewed, dictated and finalized at location A. IMPRESSION: Partial compressibility with patency of flow within the right popliteal vein. Interval resolution of thrombus within the right posterior tibial vein. The right gastrocnemius vein is presumed to contain thrombus as it is noncompre ssible.
--- OUTSIDE RECORDS SUMMARY | 2025-02-13 15:52 | XMS_ITS | Encounter Summary ---
Author Organization [facility] Address [address] [place] [address] Care Team Providers Care Truck Leasing Manager Name Role Phone Ladan Johnson MD Primary Care Provider [phone] Encounter Details Date Type Department Care Team (Latest Contact Info) Description 08/30/2018 Abstract [facility] , Juanito Ingram MD Social History Tobacco Use Types Packs/Day Years Used Date Smoking Tobacco: Never Assessed Comments Unknown Sex and Gender Information Value Date Recorded Sex Assigned at Female 11/26/2024 3:01 PM RN ED Legal Sex Female 4:40 PM CDT Gender Identity Not on file Sexual Orientation Not on file documented as of this encounter Plan of Treatment Not on file documented as of this encounter Visit Diagnoses Not on filedocumented in this encounter Care Teams Truck Leasing Manager Relationship Specialty Start Date End Date Ladan Johnson MD [address] [place] [phone] PCP - General FAMILY PRACTICE 05/20/23 documented as of this encounter
--- OUTSIDE RECORDS SUMMARY | 2025-02-13 15:52 | XMS_ITS | Clinical Summary ---
Author Organization [facility] Address [facility] [place] [address] Care Team Providers Care Still Cleaner Tube Name Role Phone Ladan Johnson MD Primary Care Provider +1- [phone] Allergies No known active allergies Medications gabapentin [...] Department Care Team Description 12/14/2024 4:09 PM VEST PRESSER - 12/14/2024 11:59 PM VEST PRESSER Hospital Encounter [facility] [address] [place] [address] Darius Mcleod PA Discharge Disposition: Home or Self Care (Routine Discharge) 12/14/2024 Travel 11/26/2024 2:39 PM VEST PRESSER - 11/26/2024 4:35 PM VEST PRESSER [facility] [address] [place] [address] Bobbi Billy MD Medical Problem Discharge Disposition: [...] Sex Assigned at Female 11/26/2024 3:01 PM VEST PRESSER Legal Sex Female 4:40 PM CDT Gender Identity Not on file Sexual Orientation Not on file Last Filed Vital Signs Vital Sign Reading Time Taken Comments Blood Pressure 174/99 11/26/2024 4:00 PM VEST PRESSER Pulse 75 11/26/2024 3:51 PM VEST PRESSER Temperature 36.5 C (97.7 F) 11/26/2024 2:45 PM VEST PRESSER Respiratory Rate 18 11/26/2024 3:51 PM VEST PRESSER Oxygen Saturation 97% 11/26/2024 4:00 PM VEST PRESSER Inhaled Oxygen Concentration - - Weight 87.6 kg (193 lb 3.2 oz) 11/26/2024 2:45 P M VEST PRESSER Height 162.6 cm (5' 4 ) 11/26/2024 2:45 PM VEST PRESSER Body Mass Index 33.16 11/26/2024 2:45 PM VEST PRESSER Plan of Treatment Health Maintenance Due Date Last Done Comments Cervical Cancer Screening Pa p Smear (Age 30 to 64) Every 3 Years 1975 Colorectal Cancer Screening Colonoscopy (10 Years) 1975 Annual Physical 1978 Hepatitis C 1993 Hepatitis B Vaccines (1 of 3 - 19+ 3-dose series) 1994 Pneumococcal Vaccine: Pediatrics (0 to 5 Years) and At-Risk Patients (6 to 49 Years) (1 of 2 - PCV) 1994 Cervical Cancer Screening Pa p with HPV Testing (Age 30 to 64) Every 5 Years 2005 Cervical Cancer Screening wi th HPV 2005 Mammogram Screening 2015 COVID-19 Vaccine (2023-2 5 season) 2024 01/31/2021, 01/01/2021 DTaP, Tdap and Td Vaccines ( 2 [...] XR CHEST PA+LAT Routine 12/14/2024 4:21 PM VEST PRESSER Asthmatic bronchitis (HHS/HCC) CTA HEAD+NECK STAT 11/26/2024 3:[address] HEAD WO CON STAT 11/26/2024 3:25 PM VEST PRESSER ECG 12-LEAD Routine 11/26/2024 3:14 PM VEST PRESSER MAGNESIUM STAT 11/26/2024 3:10 PM VEST PRESSER TROPONIN, QUANT STAT 11/26/2024 3:10 PM VEST PRESSER COMPREHENSIVE METABOLIC PANEL STAT 11/26/2024 3:10 PM VEST PRESSER CBC W/DIFF AUTOMATED STAT 11/26/2024 3:10 PM VEST PRESSER from Last 3 Months Results * XR CHEST PA+LAT (12/14/2024 4:21 PM VEST PRESSER) Anatomical Region Laterality Modality Chest Radiographic Ines ging 12/14/2024 4:31 PM VEST PRESSER Impressions 12/14/2024 4:32 PM VEST PRESSER IMPRESSION: No acute disease. Ordered By: DARIUS MCLEOD Interpreted By: Wade Gibson MD, 12/14/2024 4:31 PM Narrative 12/14/2024 4:32 PM VEST PRESSER [address] [place] [address] Examination: Two-view chest Exam time: 1600 hours. Clinical history: Cough and dyspnea. Comparison: None. Technique: PA and lateral views Findings: The heart is within normal limits for size. Pulmonary vascularity is within normal limits. The lungs and pleural spaces appear free of any active process. The bony thorax is unremarkable for age and stature. Procedure Note Wade Gibson MD - 12/14/[address] [place] [address] Examination: Two-view chest Exam time: 1600 hours. [...] Wade Gibson MD, 12/14/2024 4:31 PM Darius Mcleod PA GENERAL IMAGING Final Result * CTA HEAD+NECK (11/26/2024 3:25 PM VEST PRESSER) Anatomical Region Laterality Modality Head, Neck Computed Tomogra phy 11/26/2024 3:35 PM VEST PRESSER Impressions 11/26/2024 6:43 PM VEST PRESSER IMPRESSION: 1. No evidence of obstruction of the proximal portions of the [place]. 2. No clinically significant internal carotid artery stenosis. Dictated By: Micky Perez MD on 11/26/2024 3:35 PM The attending radiologist has reviewed the image(s) and agrees with the content of this report. Referred By: BOBBI BILLY Interpreted By: Micky Perez MD, 11/26/2024 3:35 PM Narrative 11/26/2024 6:43 PM VEST PRESSER [facility] [address] [facility] [place] [address] [place] [id number] [facility] [place] [address] INDICATION: Left-sided numbness that began earlier today. [...] Procedure Note Eldon Osman MD - 11/26/2024 [facility] [address] [place] [address] [facility] [address] [facility] [place] [address] INDICATION: Left-sided numbness that began earlier today. [...] obstruction of the proximal portions of the [place]. 2. No clinically significant internal carotid artery stenosis. Dictated By: Micky Perez MD on 11/26/2024 3:35 PM The attending radiologist has reviewed the image(s) and agrees with thecontent of this report. Referred By: BOBBI BILLY Interpreted By: Micky Perez MD, 11/26/2024 3:35 PM us Bobbi Billy MD CT Final Resul t * CT HEAD WO CON (11/26/2024 3:25 PM VEST PRESSER) Anatomical Region Laterality Modality Head Computed Tomogra phy 11/26/2024 3:29 PM VEST PRESSER Impressions 11/26/2024 3:38 PM VEST PRESSER IMPRESSION: No CT evidence of acute intracranial abnormality. Dictated By: Micky Perez MD on 11/26/2024 3:29 PM The attending radiologist has reviewed the image(s) and agrees with the content of this report. Referred By: BOBBI BILLY Interpreted By: Micky Perez MD, 11/26/2024 3:29 PM Narrative 11/26/2024 3:38 PM VEST PRESSER [address] [place] [address] [place] [address] Examination: CT HEAD WO CON Exam time: [...] Procedure Note Eldon Osman MD - 11/26/2024 [place] [id number] [facility] [place] [address] [place] [address] [facility] [place] [address] Examination: CT HEAD WO CON Exam time: [...] * ECG 12 lead (11/26/2024 3:14 PM VEST PRESSER) 11/26/2024 3:14 PM VEST PRESSER Narrative [facility] - 11/26/2024 8:39 PM VEST PRESSER [address] [place] [address] Test Date: 2024-11-26 Pat Name: IDALIA MCDONNELL Department: 3 Room: EXAM 1 Gender: Female Fitness Technician: : 1975 Requested By: BOBBI BILLY Order Number: [id number] Reading MD: Jorje Bernstein Measurements Intervals [place] Rate: 77 P: 39 CO: 121 QRS: 1 QRSD: 72 T: 27 QT: 354 QTc: 402 Interpretive Statements SINUS RHYTHM WITH OCCASIONAL SUPRAVENTRICULAR PREMATURE COMPLEXES LEFT ATRIAL ENLARGEMENT PRESSER Procedure Note Jorje Bernstein MD - 11/26/[address] [place] [address] Test Date: 2024-11-26 Pat Name: IDALIA KECIA Department: 3 Room: EXAM 1 Gender: Female Fitness Technician: : 1975 Requested By: BOBBI BILLY Order Number: [id number] Reading MD: Jorje Bernstein Measurements Intervals [place] Rate: 77 P: 39 CO: 121 QRS: 1 QRSD: 72 T: 27 QT: 354 QTc: 402 Interpretive Statements SINUS RHYTHM WITH OCCASIONAL SUPRAVENTRICULAR PREMATURE COMPLEXES LEFT ATRIAL ENLARGEMENT PRESSER us Bobbi Billy MD ECG ORDERABLES Final Resul t [facility] * (ABNORMAL) COMPREHENSIVE METABOLIC PANEL (11/26/2024 3:10 PM VEST PRESSER) SODIUM S/P/B 139 136 - 145 MMOL/L 11/26/2024 3:33 PM VEST PRESSER [facility] POTASSIUM S/P/B 4.5 3.5 - 5.1 MMOL/L 11/26/2024 3:33 PM [facility] CHLORIDE S/P/B 102 98 - 107 MMOL/L 11/26/2024 3:33 PM [facility] CO2 27.4 21.0 - 32.0 MMOL/L 11/26/2024 3:33 PM [facility] GLUCOSE 179(H) 70 - 99 MG/DL 11/26/2024 3:33 PM [facility] Comment: FASTING GLUCOSE 100 TO 125 MG/DL IS CONSISTENT WITH IMPAIRED FASTING GLUCOSE. FASTING GLUCOSE >125 MG/DL IS CONSISTENT WITH DIABETES. RANDOM GLUCOSE >200 MG/DL WITH HYPERGLYCEMIC SYMPTOMS IS CONSISTENT WITH DIABETES. PER ADA GUIDELINES BUN 18 6 - 24 MG/DL 11/26/2024 3:33 PM [facility] CREATININE S/P/B 0.86 0.55 - 1.02 MG/DL 11/26/2024 3:33 PM [facility] CALCIUM S/P/B 8.3(L) 8.4 - 10.5 MG/DL 11/26/2024 3:33 PM [facility] BILIRUBIN TOTAL S/P/B 0.7 0.2 - 1.0 MG/DL 11/26/2024 3:33 PM [facility] Comment: THIS ASSAY IS NOT RECOMMENDED FOR PATIENTS UNDERGOING TREATMENT WITH ELTROMBOPAG DUE TO THE POTENTIAL FOR FALSELY ELEVATED RESULTS. ALKALINE PHOSPHATASE S/P/B 56 39 - 100 U/L 11/26/2024 3:33 PM [facility] AST 23 15 - 37 U/L 11/26/2024 3:33 PM [facility] ALT 22 14 - 59 U/L 11/26/2024 3:33 PM [facility] TOTAL PROTEIN S/P/B 6.1(L) 6.4 - 8.2 G/DL 11/26/2024 3:33 PM [facility] ALBUMIN S/P/B 3.1(L) 3.4 - 5.0 G/DL 11/26/2024 3:33 PM [facility] ANION GAP 9.6 5.0 - 15.0 MMOL/L 11/26/2024 3:33 PM VEST PRESSER [facility] OSMOLALITY (CALC) 294 MOSM/KG 025 3:33 PM VEST PRESSER [facility] Comment:REFERENCE RANGE NOT ESTABLISHED GFR ESTIMATE 83(L) >89 ML/MIN/1. 73 M2 11/26/2024 3:33 PM VEST PRESSER [facility] GFR NOTES GFR REFERENCE S: 11/26/2024 3:33 PM VEST PRESSER [facility] Comment: THE ESTIMATED GFR IS [...] FAILURE: <15 ml/min/1.73 m2 11/26/2024 3:10 PM VEST PRESSER us Bobbi Billy MD LABORATORY Final Resul t [facility] [address] [place] [address], * (ABNORMAL) CBC W/DIFF AUTOMATED (11/26/2024 3:10 PM VEST PRESSER) WBC 12.64(H) 4.00 - 10.80 x10'3/uL 11/26/2024 3:21 PM VEST PRESSER [facility] RBC 3.93(L) 4.10 - 5.40 x10'6/uL 11/26/2024 3:21 PM VEST PRESSER [facility] HGB 8.2(L) 12.0 - 16.0 G/DL 11/26/2024 3:21 PM VEST PRESSER [facility] HCT 27.6(L) 36.0 - 47.0 % 11/26/2024 3:21 PM [facility] MCV 70.2(L) 78.0 - 100.0 FL 11/26/2024 3:21 PM [facility] MCH 20.9(L) 27.0 - 31.0 PG 11/26/2024 3:21 PM [facility] MCHC 29.7(L) 33.0 - 36.0 G/DL 11/26/2024 3:21 PM [facility] RDW 21.6(H) 11.5 - 14.5 % 11/26/2024 3:21 PM [facility] PLT 380(H) 150 - 350 x10'3/uL 11/26/2024 3:21 PM [facility] MPV 9.6 7.4 - 10.4 FL 11/26/2024 3:21 PM [facility] CBC COMMENT NORMAL REFERENCE RANGE NOT ESTABLISHED FOR THE PROPORTIONAL LEUKOCYTE DIFFERENTIAL. 11/26/2024 3:21 PM [facility] SEG NEUTROPHILS 94 % 3:54 PM [facility] LYMPHOCYTES 5 % 11/26/2024 3:54 PM [facility] MONOCYTES 1 % 11/26/2024 3:54 PM [facility] ABS SEGMENTED NEUTS 11.88(H) 1.60 - 8.30 x10'3/uL 11/26/2024 3:54 PM [facility] ABS. LYMPHOCYTES 0.63(L) 0.80 - 4.70 x10'3/uL 11/26/2024 3:54 PM [facility] ABS. MONOCYTES 0.13 0.10 - 1.50 x10'3/uL 11/26/2024 3:54 PM [facility] PLT MORPH. NORMAL 11/26/2024 3:54 PM [facility] RBC MORPHOLOGY 2+ 11/26/2024 3:54 PM [facility] Comment: ANISOCYTOSIS 1+ MICROCYTES 2+ HYPOCHROMASIA 1+ TARGET CELLS 1+ POIKILOCYTOSIS 11/26/2024 3:10 PM VEST PRESSER Bobbi Billy MD LABORATORY Final Resul t Performing Organization Address City/[facility]/ZIP Co de Phone Number [facility] [address] [place] [address], * TROPONIN, QUANT (11/26/2024 3:10 PM VEST PRESSER) TROPONIN I HIGH SENSITIVITY 9 0 - 51 ng/L 11/26/2024 3:33 PM VEST PRESSER [facility] 11/26/2024 3:10 PM VEST PRESSER Bobbi Billy MD LABORATORY Final Resul t Performing Organization Address [facility] Co de Phone Number [facility] [address] [place] [address], * MAGNESIUM (11/26/2024 3:10 PM VEST PRESSER) MAGNESIUM 2.2 1.8 - 2.4 MG/DL 11/26/2024 3:33 PM VEST PRESSER [facility] 11/26/2024 3:10 PM VEST PRESSER Bobbi Billy MD LABORATORY Final Resul t Performing Organization Address City/[facility] Co de Phone Number [facility] [address] [place] [address], from Last [address] [place] [address] Care Teams Still Cleaner Tube Relationship Specialty Start Date End Date Ladan Johnson MD [address] [place] [phone] PCP - General FAMILY PRACTICE 05/20/23
--- OUTSIDE RECORDS SUMMARY | 2025-02-13 15:52 | XMS_ITS | Clinical Summary ---
Author Organization [facility] Address [address] [place] [address] Care Team Providers Care Metal Refiner Name Role Phone Candido Maurice MD Primary Care Provider +1- [phone] Allergies No known active allergies Medications cyclobenzaprine [...] (07/28/2021): Added automatically from request for surgery [id number] Type I or II open fracture of right ulna 021 Overview (07/28/2021): Added automatically from request for surgery [id number] Anxiety Current every day smoker Immunizations Immunization [...] on file Medical Devices Implanted Type Area Precision Layout Worker Device Identifier Shelf Expiration Date Model / Serial / Lot Book&Table [id number] Plate Bone Volar Bearing Plate Titanium Standard Narrow Contour Wrist Right Volar 3 Hole Lock 7 Peg Nonsterile 2.3mm Cortical Screw - [id number] Implanted:Qty: 1 on 07/31/2021 by Naeem Macias MD at [facility] Right: Radius [employer] [id number] / / [employer] Hex 3212 3.2mm 12mm Hexagonal Cortical Screw Bone Ankle Fixation System - [id number] Implanted:Qty: 1 on 07/31/2021 by Naeem Macias MD at [facility] [employer] 07/31/2021 HEX 3212 / / [employer] Tpeg-18 18mm Thread Lock Torx Wrist Volar Peg Fixation - [id number] Implanted:Qty: 1 on 07/31/2021 by Naeem Macias MD at [facility] Right: Radius [employer] TPEG-18 / / [employer] Upeg16 Peg Fixation L14mm Volar - [id number] Implanted:Qty: 1 on 07/31/2021 by Naeem Macias MD at [facility] Right: Radius [employer] UPEG16 / / [employer] Upeg-18 18mm Unthreaded Volar Peg Fixation - [id number] Implanted:Qty: 1 on 07/31/2021 by Naeem Macias MD at [facility] Right: [employer] UPEG-18 / / [employer] Upeg-20 20mm Peg Unthreaded Screw Bone Trx - [id number] Implanted:Qty: 1 on 07/31/2021 by Naeem Macias MD at [facility] Right: [employer] UPEG-20 / / [employer] [id number] Screw Bone Stainless Steel L12mm Od3.2mm Cortex Lock Nonsterile Clavicle Fixation System - [id number] Implanted:Qty: 2 on 07/31/2021 by Naeem Macias MD at [facility] Right: [employer] [id number] / / [employer] [id number] Wire Fixation Kenney L100mm Od1.1mm Nonsterile - [id number] Implanted:Qty: 1 on 07/31/2021 by Naeem Macias MD at [facility] Right: Viridiana [employer] [id number] / / [employer] [id number] 24ga 18in Strand Wire Dental - [id number] Implanted:Qty: 1 on 07/31/2021 by Naeem Macias MD at [facility] Right: Ulna [employer] [id number] / / Explanted Type Area Precision Layout Worker Device Identifier Shelf Expiration Date Model / Serial / Lot Trimed Inc [id number] Wire Fixation Kenney L100mm Od1.1mm Nonsterile - [id number] Explanted:Qty: 3 on 07/31/2021 at [facility] Right: Marilyn [employer] [id number] / / Insurance COLE KUMAR [id number] MRA , [place] [address] [facility] [address] [place] [address] Advance Directives For more information, please contact: [phone] * Full Code (Latest Code Status on File) Date Activated Date Inactivated Comments 07/26/2021 3:58 AM 08/02/2021 11:32 PM * Full Code Date Activated Date Inactivated Comments 07/26/2021 12:54 AM 07/26/2021 3:58 AM Care Teams Metal Refiner Relationship Specialty Start Date End Date Candido Maurice MD [address] [place] [id number] PCP - General 04/02/17
--- OUTSIDE RECORDS SUMMARY | 2025-02-13 15:52 | XMS_ITS | Referral Summary ---
Author Organization [facility] Address [address] [place] [address] Care Team Providers Care Airport Operations Specialist Name Role Phone Candido Maurice MD Primary Care Provider +1- [phone] Allergies No known active allergies Medications cyclobenzaprine [...] (07/28/2021): Added automatically from request for surgery [id number] Type I or II open fracture of right ulna 021 Overview (07/28/2021): Added automatically from request for surgery [id number] Anxiety Current every day smoker Immunizations Immunization [...] on file Medical Devices Implanted Type Area Solutions Architect Device Identifier Shelf Expiration Date Model / Serial / Lot Trimed Inc [id number] Plate Bone Volar Bearing Plate Titanium Standard Narrow Contour Wrist Right Volar 3 Hole Lock 7 Peg Nonsterile 2.3mm Cortical Screw - [id number] Implanted:Qty: 1 on 07/31/2021 by Pet, Naeem Wilkins MD at [facility] Right: Rad[employer] [id number] / / [employer] Hex 3212 3.2mm 12mm Hexagonal Cortical Screw Bone Ankle Fixation System - [id number] Implanted:Qty: 1 on 07/31/2021 by Naeem Macias MD at [facility] [employer] 07/31/2021 HEX 3212 / / [employer] Tpeg-18 18mm Thread Lock Torx Wrist Volar Peg Fixation - [id number] Implanted:Qty: 1 on 07/31/2021 by Naeem Macias MD at [facility] Right: Radius [employer] TPEG-18 / / [employer] Upeg16 Peg Fixation L14mm Volar - [id number] Implanted:Qty: 1 on 07/31/2021 by Naeem Macias MD at [facility] Right: Rad[employer] UPEG16 / / [employer] Upeg-18 18mm Unthreaded Volar Peg Fixation - [id number] Implanted:Qty: 1 on 07/31/2021 by Naeem Macias MD at [facility] Right: Radius [employer] UPEG-18 / / [employer] Upeg-20 20mm Peg Unthreaded Screw Bone Trx - [id number] Implanted:Qty: 1 on 07/31/2021 by Naeem Macias MD at [facility] Right: Radius [employer] UPEG-20 / / [employer] [id number] Screw Bone Stainless Steel L12mm Od3.2mm Cortex Lock Nonsterile Clavicle Fixation System - [id number] Implanted:Qty: 2 on 07/31/2021 by Naeem Macias MD at [facility] Right: [employer] [id number] / / [employer] [id number] Wire Fixation Kenney L100mm Od1.1mm Nonsterile - [id number] Implanted:Qty: 1 on 07/31/2021 by Naeem Macias MD at [facility] Right: Ulna [employer] [id number] / / [employer] [id number] 24ga 18in Strand Wire Dental - [id number] Implanted:Qty: 1 on 07/31/2021 by Naeem Macias MD at [facility] Right: Viridiana [employer] [id number] / / Explanted Type Area Solutions Architect Device Identifier Shelf Expiration Date Model / Serial / Lot Trimed Inc [id number] Wire Fixation Kenney L100mm Od1.1mm Nonsterile - [id number] Explanted:Qty: 3 on 07/31/2021 at [facility] Right: Rad[employer] [id number] / / Insurance [facility] COLE KUMAR [facility] H[facility]/PPO Address: [facility] [address] [place] [address] MRA Advance Directives For more information, please contact: [phone] * Full Code (Latest Code Status on File) Date Activated Date Inactivated Comments 07/26/2021 3:58 AM 08/02/2021 11:32 PM * Full Code Date Activated Date Inactivated Comments 07/26/2021 12:54 AM 07/26/2021 3:58 AM Care Teams Airport Operations Specialist Relationship Specialty Start Date End Date Candido Maurice MD [facility] [place] [id number] PCP - General 04/02/17
--- OUTSIDE RECORDS SUMMARY | 2025-02-13 15:52 | XMS_ITS | Encounter Summary ---
Author Organization [facility] Address [address] [place] [address] Care Team Providers Care Satellite Dish Technician Name Role Phone Ladan Johnson MD Primary Care Provider +1- [phone] Encounter Details Date Type Department Care Team (Late st Contact Info) Description 06/02/2023 PrintEco Message Enc [place] [address] [place] [address] Prince Hudson MD [address] [place] [id number] Visit Follow Up Social History Tobacco Use Types Packs/Day Years Used Date Smoking Tobacco: Every Day Cigarettes Smokeless Tobacco: Never Alcohol Use Standard Drinks/Week Comments Yes 0 (1 standard drink = 0.6 oz pur e alcohol) rare Comments Unknown Sex and Gender Information Value Date Recorded Sex Assigned at Female 11/26/2024 3:01 PM KEYPUNCHER Legal Sex Female 4:40 PM CDT Gender Identity Not on file Sexual Orientation Not on file documented as of this encounter Plan of Treatment Not on file documented as of this encounter Visit Diagnoses Not on filedocumented in this encounter Care Teams Satellite Dish Technician Relationship Specialty Start Date End Date Ladan Johnson MD [address] [place] [phone] PCP - General FAMILY PRACTICE 05/20/23 documented as of this encounter
--- OUTSIDE RECORDS SUMMARY | 2025-02-13 15:52 | XMS_ITS | Continuity of Care Document ---
Author Organization [facility] Address [address] [place] [address] Phone Care Team Providers Care Engineering Inspector Name Role Phone No Information Unavailable Unavailable Medications Medication Instructions Dosage Effective Dates (start - stop) Status Comments Effexor 100 mg Tab - Active ProAir HFA 90 mcg/Actuation Aerosol Inhaler 1 puff q4-6hrs - Active Protonix 40 mg Tab Take one tablet by mouth daily. - Active Symbicort 80 mcg-4.5 mcg/Actuation Inhalation HFA Aerosol Inhaler Inhale two times by mouth two times per day - Active Albuterol Sulfate HFA 90 mcg/Actuation [...] Erythrocyte; Auto Antinuclear Antib; Titer Dna Antib; Chevak/double Stran 07 Extract Nuclr Antig Antib Any 7 Cyanocobalamin Immuniz Admin; 1/combo Vacc/to 07 TDAP VACCINE >7 IM ASSAY OF PROTEIN, URINE Advance Directives Directive Yes / No Effective Date File Name No Information Encounters Encounter Description Practice Location Reason(s) For Visit Diagnoses Date Provider Providers Copied on Encounter [facility], [address], [place], [place], [id number] , [place] tel: [phone] No Information 8 0 No Information [facility], [address], [place], [place], [id number] , [place] tel: [phone] Karen No Information 8 Conoley Sheyla. [address], [place], [place], [id number], [place]. tel:[phone] [facility], [address], [place], [place], [address] , [place] tel: [phone] Karen No Information 9200 8 Anitha Cisneros. [address], [place], [place], [address], [place]. tel:[phone] Referring Provider: Rebecca Araiza [address] [facility] [address], [place], [address] . tel:[phone] Preven E&m Estab Pt; 18-39 Yr [facility], [address], [place], [place], [address] , [place] tel: [phone] Karen EXAM, GENERAL, ROUTINE 5200 8 Anitha Cisneros. [address], [place], [place], [address], [place]. tel:[phone] Referring Provider: Stacy Beltran [facility] [address], [place], [address] . tel:[phone] [facility], [address], [place], [place], [address] , [place] tel: [phone] Karen No Information 8200 8 Van Fernandez. [address], [facility] [address], [place], [place], [address], [place]. tel:[phone] Offic/outpt E&m Estab Mod-hi 2 [facility], [address], [place], [place], [address] , [place] tel: [phone] Karen ASTHMA, UNSPECIFIED Sep-1 0-200 7 Van Fernandez. [address], [facility] [address], [place], [place], [address], [place]. [phone] Referring Provider: Rebecca Araiza [address] [facility] [address], [place], [address] . tel:[phone] Offic/outpt E&m Estab Mod-hi [address] [place] [address], [address], [place], [place], [address] , [place] tel: [phone] Karen SINUSITIS, ACUTE, UNSPEC.ASTHMA, UNSPECIFIED Mar-0 9-200 7 [place] Rebecca. [address] [facility] [address], [place], [place], [address], [place]. [phone] Referring Provider: Rebecca Araiza [address] [facility] [address], [place], [address] . tel:[phone] [facility], [address], [place], [place], [address] , [place] tel: [phone] [address] No Information Dec-0 2-200 7 [place] Rebecca. [address] [facility] [address], [place], [place], [address], [place]. [phone] Referring Provider: Rebecca Araiza [address] [facility] [address], [place], [address] . tel:[phone] [facility], [address], [place], [place], [address] , [place] tel: [phone] [address] No Information Oct-2 6-200 7 [place] Rebecca. [address] [facility] [address], [place], [place], [address], [place]. tel:[phone] Referring Provider: Rebecca Araiza [address] [facility] [address], [place], [address] . tel:[phone] Offic/outpt E&m Estab [facility], [address], [place], [place], [address] , [place] tel: [phone] Karen OTH SPEC NONINFLAMMATORY DISORDEFATIGUE/M ALAISE 8 7 [place] Abrahamynh. [address], [facility] [address], [place], [place], [address], [place]. tel:[phone] Referring Provider: Rebecca Araiza [address] [facility] [address], [place], [address] . tel:[phone] Offic/outpt E&m [facility], [address], [place], [place], [address] , [place] tel: [phone] Karen PAIN, HIPASTHMA, UNSPECIFIEDFATIG UE/MALAISEPROTEI NURIABP ELEVATION 7 Van Fernandez. [address], [facility] [address], [place], [place], [address], [place]. tel:[phone] Referring Provider: Rebecca Araiza [address] [facility] [address], [place], [address] . tel:[phone] Family History Family Member Type Diagnosis Age At Onset No Information Immunizations Vaccine Date Status Comments Tdap administered Note: Administe red by Oliva Ahn ; Source: New Immunization Record Payers Payer name Insurance type Covered constitution party ID Authoriza tion(s) BCBS PPO/POS BL [id number] Social History Type Description Quantity Date Captured [...]
--- OUTSIDE RECORDS SUMMARY | 2025-02-13 15:52 | XMS_ITS | Data Portability ---
Author Organization [facility], [address] [facility] ([place]) Address [address] [place] [address] Care Team Providers Care Shotgun Shell Reprinting Unit Operator Name Role Phone DEBBIE ANN Primary Care Provider [phone] Assessment No assessment recorded. Plan of Treatment [...] and Address Organization Details Recorded Time Anxiety 89032298 Active 025 Mayra Husain APRN, DNP. TRACER BULLET CHARGING MACHINE OPERATOR [address] [place] [address], [phone] [facility] 5 15:51:34 Chronic depression 741333444 Active 025 Mayra Husain APRN, DNP. TRACER BULLET CHARGING MACHINE OPERATOR [address] [place] [address], [phone], [facility] 5 15:51:45 Finding with explicit context 378937168 Active 025 [facility] 1 Mayra Husain APRN, DNP. TRACER BULLET CHARGING MACHINE OPERATOR [address] [place] [address], [phone] [place] [address] 5 15:52:23 Hoarse 46497249 Active 025 Mayra Husain APRN, DNP. TRACER BULLET CHARGING MACHINE OPERATOR [address] [place] [address], [phone], [facility] 16:14:51 Problem Notes None recorded. Procedures Surgical History Date Name Laterality Status Provider Name and Address Organization Details Recorded Time 11/01/19 04 laparoscopic bypass of stomach completed Mayra Husain, PIECE DYER, DNP. TRACER BULLET CHARGING MACHINE OPERATOR [address] [place] [address], [phone], [facility] 11/01/2024 15:51:03 Imaging Results None recorded. [...] Updated DateTime 11/01/2024 162.56 cm 32.8 kg/m2 08541.14 g [facility] 11/01/2024 15:50:16 Social History None recorded. Functional Status None recorded. Mental Status None recorded. Family History Nothing Reported. Medical History No medical history recorded. Gynecological HistoryNo gynecological history recorded. Obstetrics History GPAL:G 0 P 0 0 0 0 Past Encounters Encounter ID Performer Location Encounter Start Date Encounter Closed Date Diagnosis/Indication Diagnosis SNOMED-CT Code Diagnosis ICD10 Code Diagnosis Note [id number] Mayra Husain, PIECE DYER, DNP. TRACER BULLET CHARGING MACHINE OPERATOR [facility] [place] [address] [place] [address] 11/01/2024 15:36:49 11/01/2024 16:14:40 Hoarse 21380025 R49.0 Patient has a history of hoarseness [...] will follow-up with me in [facility] 6 to 8 weeks. Health Concerns Section Related Observation LastModified by Organization Detai ls LastModified Time None Recorded Concern Status LastModified by Organization Details LastModified Time None Recorded Advance Directives Directive None Recorded Payers Encounter Date Sequence Insurance Name Policy Number Policy Stinson Covered Member ID Stinson Member ID Guarantor Name 11/01/2024 1 [facility] [id number] Ora Uriarte [id number] Ora Uriarte Notes Date Note Type Note [...] 20 years ago. Mayra Husain, SETH, DNP. TRACER BULLET CHARGING MACHINE OPERATOR [address] [place] [address], [phone], [place] [facility] 11/02/2024 12:33:34 OBGyn Episode No OBEpisode recorded.
== END 2025-02-13 13:51 | disposition home or self-care (01) ==
PROVIDERS: PCP Family Medicine; Visit Provider Family Medicine
DX: I82.491 Acute embolism and thrombosis of other specified deep vein of right lower extremity (principal)
CPT/HCPCS: 93971

== ENCOUNTER 2025-08-06 08:28 | Outpatient (CLI) | payer OTHER, SELFPAY ==
--- NOTE | ~2025-08-06 | US_ITS ---
EXAMINATION: US venous doppler LE RT, 08/06/2025 8:36 CDT HISTORY: F/U EMOLISM AND THROMBOSIS OF OTHER SPECIFIED DEEPVEIN OF Comparison: Comparison 02/13/2025. Technique: Yeh-scale and color Doppler images were attempted of the lower saphenofemoral junction, common femoral vein,superficial femoral vein, proximal deep femoral vein, proximal deep femoral vein, popliteal vein and posterior tibial veins. Findings: Deep Venous System:There is thrombus within the popliteal vein which appears chronic with diminished flow compression, the remaining visualized deep venous system demonstrates no acute thrombus. Superficial Venous SystemNo superficial thrombophlebitis. Soft tissues: Soft tissues are unremarkable. Impression: 1. Probable chronic DVT detailed above Reviewed, dictated and finalized at location P. Impression: 1. Probable chronic DVT detailed above
--- OUTSIDE RECORDS SUMMARY | 2025-08-06 08:43 | XMS_ITS | Patient Health Record ---
Author Organization [facility] [place] ( ) Address [address] [place] [address] Care Team Providers Care Flower Cheniller Name Role Phone N/A, N/A Primary Care Provider DEEPTI Goldberg Unavailable [phone] Bin Layne Unavailable Unavailable Reason For Referral No Information Problems Problem Type SNOMED Code ICD Code Onset Dates Problem Status W/U Status Risk Notes Problem Dental voodoo finding (finding) (988798268) Dental voodoo status (Z98.811) Active confirmed Plan Of Treatment No Information
--- OUTSIDE RECORDS SUMMARY | 2025-08-06 08:43 | XMS_ITS | Clinical Summary ---
Author Organization [facility] Address [address] [place] [address] Care Team Providers Care Window Installation Subcontractor Name Role Phone Candido Maurice MD Primary Care Provider [phone] Allergies No known active allergies Medications cyclobenzaprine [...] (07/28/2021): Added automatically from request for surgery [id number] Type I or II open fracture of right ulna 021 Overview (07/28/2021): Added automatically from request for surgery [id number] Anxiety Current every day smoker Immunizations Immunization [...] 5:00 PM CDT Height 162.6 cm (5' 4) 07/25/2021 4:25 PM CDT Body Mass Index 34.81 07/25/2021 4:25 PM CDT Plan of Treatment Not on file Medical Devices Implanted Type Area Senior Sql Developer Device Identifier Shelf Expiration Date Model / Serial / Lot Shopcliq [id number] Plate Bone Volar Bearing Plate Titanium Standard Narrow Contour Wrist Right Volar 3 Hole Lock 7 Peg Nonsterile 2.3mm Cortical Screw - [id number] Implanted:Qty: 1 on 07/31/2021 by Naeem Macias MD at [facility] Right: Radius [employer] [id number] / / [employer] Hex 3212 3.2mm 12mm Hexagonal Cortical Screw Bone Ankle Fixation System - [id number] Implanted:Qty: 1 on 07/31/2021 by Naeem Macias MD at [facility] [employer] 07/31/2021 HEX 3212 / / [employer] Tpeg-18 18mm Thread Lock Torx Wrist Volar Peg Fixation - [id number] Implanted:Qty: 1 on 07/31/2021 by Naeem Macias MD at [facility] Right: [employer] TPEG-18 / / [employer] Upeg16 Peg Fixation L14mm Volar - [id number] Implanted:Qty: 1 on 07/31/2021 by Naeem Macias MD at [facility] Right: [employer] UPEG16 / / [employer] Upeg-18 18mm Unthreaded Volar Peg Fixation - [id number] Implanted:Qty: 1 on 07/31/2021 by Naeem Macias MD at [facility] Right: [employer] UPEG-18 / / [employer] Upeg-20 20mm Peg Unthreaded Screw Bone Trx - [id number] Implanted:Qty: 1 on 07/31/2021 by Naeem Macias MD at [facility] Right: [employer] UPEG-20 / / [employer] [id number] Screw Bone Stainless Steel L12mm Od3.2mm Cortex Lock Nonsterile Clavicle Fixation System - [id number] Implanted:Qty: 2 on 07/31/2021 by Naeem Macias MD at [facility] Right: [employer] [id number] / / [employer] [id number] Wire Fixation Kenney L100mm Od1.1mm Nonsterile - [id number] Implanted:Qty: 1 on 07/31/2021 by Naeem Macias MD at [facility] Right: Viridiana [employer] [id number] / / [employer] [id number] 24ga 18in Strand Wire Dental - [id number] Implanted:Qty: 1 on 07/31/2021 by Naeem Macias MD at [facility] Right: Ulna [employer] [id number] / / Explanted Type Area Senior Sql Developer Device Identifier Shelf Expiration Date Model / Serial / Lot [employer] [id number] Wire Fixation Kenney L100mm Od1.1mm Nonsterile - [id number] Explanted:Qty: 3 on 07/31/2021 at [facility] Right: Marilyn [employer] [id number] / / Insurance [facility] [place] [address] [facility] H[facility]/PPO Address: [address] [address] Advance Directives For more information, please contact: [phone] * Full Code (Latest Code Status on File) Date Activated Date Inactivated Comments 07/26/2021 3:58 AM 08/02/2021 11:32 PM * Full Code Date Activated Date Inactivated Comments 07/26/2021 12:54 AM 07/26/2021 3:58 AM Care Teams Window Installation Subcontractor Relationship Specialty Start Date End Date Candido Maurice MD [address] [place] [address] PCP - General 04/02/17
== END 2025-08-06 08:29 | disposition home or self-care (01) ==
LOC: CHSIMG 08:31
PROVIDERS: PCP Family Medicine; Visit Provider Family Medicine
DX: I82.491 Acute embolism and thrombosis of other specified deep vein of right lower extremity (principal)
CPT/HCPCS: 93971